=== PATIENT | male | born 1950 ===

== ENCOUNTER 2017-07-16 07:19 | Emergency (ER) | payer OTHER ==
[2017-07-16 08:36] VITALS: TEMP 98
--- NOTE | 2017-07-16 10:08 | C.PDOC ---
Chief Complaint (Nursing): Cardiac Arrest Past Medical History Vital Signs: Last Vital Signs Temp 98.0 F 07/16/17 07:29 Pulse Resp BP Pulse Ox - Social History Hx Alcohol Use: No (UNOBTAINABLE) Hx Substance Use: No (UNOBTAINABLE) - Immunization History Hx Tetanus Toxoid Vaccination: No (UNOBTAINABLE) Hx Influenza Vaccination: No (UNOBTAINABLE) Hx Pneumococcal Vaccination: No (UNOBTAINABLE) Disposition - Disposition
--- NOTE | 2017-07-16 10:10 | C.PDOC ---
History Of Present Illness 66 year old male brought to ED by ALS with CPR in progress. As per EMS, pt had witnessed cardiac arrest by coworker, 911 was called at 6:42. CPR was started approximately 10 minutes after patient collapsed. ACLS protocols initiated by ALS on scene, and was in progress while transport to ED. ACLS continued in ED, with no ROSC. Pt was pronounced at 7:35. Chief Complaint (Nursing): Cardiac Arrest History Per: EMS Circumstances: Brought To ED By EMS Arrest Witnessed By: Other (coworker) CPR Initiated Prior To MD Arrival?: Yes Treatment Initiated Prior To MD Arrival: Yes: CPR, BVM Ventilations, Intubation , Defibrillation, IVF, ACLS Medication Initiation, IV Access Medications Given Prior To MD Arrival: Yes: Epinephrine, Sodium Bicarb, Other - Initial Findings Mentation: Unresponsive Respirations: None (Assisted) Pulse: None Rhythm: PEA Past Medical History Reviewed: Historical Data, Nursing Documentation, Vital Signs Vital Signs: Last Vital Signs Temp 98.0 F 07/16/17 07:29 Pulse Resp BP Pulse Ox Family History: States: Unknown Family Hx - Social History Hx Alcohol Use: No (UNOBTAINABLE) Hx Substance Use: No (UNOBTAINABLE) - Immunization History Hx Tetanus Toxoid Vaccination: No (UNOBTAINABLE) Hx Influenza Vaccination: No (UNOBTAINABLE) Hx Pneumococcal Vaccination: No (UNOBTAINABLE) Review Of Systems Review Of Systems: ROS cannot be obtained secondary to pt's inabilty to answer questions. Physical Exam - Physical Exam Appears: Other (Unresponsive) Skin: Normal Color, No Warm (cool to touch), No Other (no signs of trauma) Head: Atraumatic, Normacephalic Eye(s): bilateral: Abnormal Pupil (pupils fixed, equal, non-reactive) Chest: Symmetrical Cardiovascular: No Other (no heart sounds) Respiratory: Other (bilateral breath sounds with artificial ventilation) Gastrointestinal/Abdominal: No Bowel Sounds (no bowel sounds), Soft Neurological/Psych: Other (Unresponsive) Medical Decision Making Medical Decision Making: Family in ED was made aware. rn examiner office called, spoke with Cheri May. Pt was accepted by ME's office. Disposition - Disposition Disposition: WITH WITHOUT AUTOPSY Disposition Time: 07:35 Condition: Forms: [employer] [facility] (Mongolian) - Clinical Impression Clinical Impression: Cardiac arrest Critical Care Time - Critical Care Note Total Time (in mins): 60 Documented critical care: time excludes all time spent performing seperately billable procedures. - Scribe Statement The provider has reviewed the documentation as recorded by the Scribe Thanh Jeffers All medical record entries made by the Scribe were at my direction and personally dictated by me. I have reviewed the chart and agree that the record accurately reflects my personal performance of the history, physical exam, medical decision making, and the department course for this patient. I have also personally directed, reviewed, and agree with the discharge instructions and disposition.
== END 2017-07-16 10:45 ==
LOC: C.ER 07:19
DX: I46.9 Cardiac arrest, cause unspecified (principal)
CPT/HCPCS: 82948; 99285; J0171